=== PATIENT | female | born 1995 | race Caucasian/White ===

== ENCOUNTER 2018-11-10 10:37 | Emergency (ER) | payer BC ==
[2018-11-10 10:59] VITALS: BP 138/83
--- NOTE | 2018-11-10 11:13 | UC ---
Skin Complaint HPI - HPI Summary HPI Summary: Pt presents with c/o tender "lump" on left side of neck. Pt reports that she has a "pimple" on upper back that she scratched and now has painful lump on left side of neck. - History of Current Complaint Chief Complaint: UCSkin Time Seen by Provider: 11/10/18 11:08 Stated Complaint: RT SIDE NECK LUMP Hx Obtained From: Patient Hx Last Menstrual Period: 11/08/18 ?: No Onset/Duration: Gradual Onset, Lasting Days, Still Present Skin Exposure Onset/Duration: Days Ago Timing: Constant Onset Severity: Mild Current Severity: Moderate Pain Intensity: 3 Location: Discrete - left side of neck Character: Swelling, Pain, Raised, Painful Aggravating Factor(s): Touch Alleviating Factor(s): Nothing Associated Signs & Symptoms: Positive: Tenderness Related History: Other: - small abscess/acne - Allergy/Home Medications Allergies/Adverse Reactions: Allergies Allergy/AdvReac Type Severity Reaction Status Date / Time No Known Allergies Allergy Verified 11/10/18 10:54 Home Medications: Home Medications Ethinyl Estradiol/Drospirenone [Anna 28 Tablet] 1 each PO DAILY 11/10/18 [ History Confirmed 11/10/18] PMH/Surg Hx/FS Hx/Imm Hx Previously Healthy: Yes - Surgical History Surgical History: Yes Surgery Procedure, Year, and Place: trigger release R thumb - Family History Known Family History: Positive: Cardiac Disease - Social History Occupation: Student Lives: With Family Alcohol Use: Occasionally Substance Use Type: None Smoking Status (MU): Never Smoked Tobacco Have You Smoked in the Last Year: No Household Exposure Type: Cigarettes - Immunization History Vaccination Up to Date: Yes Review of Systems All Other Systems Reviewed And Are Negative: Yes Constitutional: Positive: Negative Skin: Positive: Other - healing wound back of upper neck, ~ dime size in diameter Eyes: Positive: Negative ENT: Positive: Negative, Other - painful lump left side of neck Respiratory: Positive: Negative Cardiovascular: Positive: Negative Gastrointestinal: Positive: Negative Genitourinary: Positive: Negative Motor: Positive: Negative Neurovascular: Positive: Negative Musculoskeletal: Positive: Negative Neurological: Positive: Negative Psychological: Positive: Negative Is Patient Immunocompromised?: No Physical Exam Triage Information Reviewed: Yes Appearance: Well-Appearing Vital Signs: Initial Vital Signs Temp 98.4 F 06/28/19 10:54 Pulse 65 11/10/18 10:54 Resp 14 11/10/18 10:54 BP 138/83 11/10/18 10:54 Pulse Ox 100 11/10/18 10:54 Vital Signs Reviewed: Yes Eye Exam: Normal ENT Exam: Normal Dental Exam: Normal Neck: Positive: Enlarged Nodes @ - left deep cervical lymphnode enlargement, soft, tender, moveable mass Course/Dx - Differential Diagnoses - Skin Complaint Differential Diagnoses: Abscess, MRSA - Diagnoses Provider Diagnosis: Lymphadenopathy of head and neck Discharge - Sign-Out/Discharge Documenting (check all that apply): Patient Departure All imaging exams completed and their final reports reviewed: No Studies - Discharge Plan Condition: Stable Disposition: HOME Patient Education Materials: Lymphadenopathy (ED) Referrals: No Primary Care Phys,NOPCP [Primary Care Provider] - [facility] [place] [facility] [place] [facility] [place]] - If Needed - Billing Disposition and Condition Condition: STABLE Disposition: Home
== END 2018-11-10 11:18 | disposition home or self-care (01) ==
LOC: UCCORT 10:37
DX: R59.1 Generalized enlarged lymph nodes (principal)
CPT/HCPCS: 99201; G0463